=== PATIENT | female | born 2000 | race Two or more races ===

== ENCOUNTER 2021-03-31 08:54 | Emergency (ER) | payer OTHER ==
[2021-03-31 09:24] VITALS: BP 99/62; PULSE 108; TEMP 100; BMI 22.2
[2021-03-31] MEDS ORDERED: CEPHALEXIN MONOHYDRATE 500 MG CAPSULE (UD) PO ONE (09:43)
[2021-03-31] MEDS ORDERED: ACETAMINOPHEN 325 MG TABLET (FP) PO ONE (09:43)
[2021-03-31] MEDS ORDERED: ACETAMINOPHEN 325 MG TABLET (FP) ONE (09:55)
[2021-03-31] MEDS ORDERED: CEPHALEXIN MONOHYDRATE 500 MG CAPSULE (UD) ONE (09:55)
== END 2021-03-31 10:07 | disposition home or self-care (01) ==
LOC: FER 08:54
DX: L05.01 Pilonidal cyst with abscess (principal)
CPT/HCPCS: 99283-25